=== PATIENT | female | born 1965 | race African-American/Black ===

== ENCOUNTER 2016-06-24 14:00 | Day surgery (SDC) | payer MEDICAID ==
[~2016-06-24 14:00] MED LIST: HAIR, SKIN & N1 EACH PO; IRON1 TA1 PO; MULTIVITAMINS1 EAC6 PO; STOOL SOFTERNER RC; TAMOXIFEN CITRA20 M1 PO; XANAX1 M1 PO; ZANTAC
[2016-06-24 15:05] LABS: ALB/GLOB RATIO 0.8 (0.8-2.0); ALBUMIN 3.5 g/dl (3.5-5.0); ALKALINE PHOSPHATASE 51 U/L (33-138); ALT/SGPT 47 U/L (12-78); ANION GAP 14 mmol/L (0-20); AST/SGOT 35 U/L (10-40); BILIRUBIN,TOTAL 0.9 mg/dl (0-1.5); BLOOD UREA NITROGEN 10 mg/dl (6-24); CALCIUM 8.8 mg/dl (8.5-10.5); CARBON DIOXIDE-VENOUS 25 mmol/L (22-32); CHLORIDE 106 mmol/l (96-110); CREATININE 0.94 mg/dl (0.50-1.10); GLUCOSE 97 mg/dL (70-110); POTASSIUM 3.7 mmol/L (3.7-5.1); SODIUM 141 mmol/L (135-145); eGFR VALUE FOR BLACK 82 mL/Min
== END 2016-06-24 16:00 ==
LOC: SHSB 14:00 → ENDOS 14:45
PROVIDERS: Internal Medicine Gastroenterology
PROC: 0DBN8ZX Excision of Sigmoid Colon, Via Natural or Artificial Opening Endoscopic, Diagnostic (ICD-10-PCS; principal; 2016-06-24)
DX: Z12.11 Encounter for screening for malignant neoplasm of colon (principal); K63.5 Polyp of colon; K64.8 Other hemorrhoids; K21.9 Gastro-esophageal reflux disease without esophagitis; B19.20 Unspecified viral hepatitis C without hepatic coma; F17.200 Nicotine dependence, unspecified, uncomplicated; F10.10 Alcohol abuse, uncomplicated; Z79.810 Long term (current) use of selective estrogen receptor modulators (SERMs); Z90.710 Acquired absence of both cervix and uterus; Z98.890 Other specified postprocedural states